=== PATIENT | male | born 1965 | race Caucasian/White ===

== ENCOUNTER 2017-04-17 14:37 | Emergency (ER) | payer MEDICAID ==
--- NOTE | 2017-04-17 15:25 | EDPHY ---
H & P Time Seen by Provider: 04/17/17 15:24 HPI/ROS: Chief complaint. Fall HPI. 52-year-old male was having his oil changed and apparently got out of the passenger side of the car and was walking around the car to go to the waiting room. Apparently he had a misstep and fell part way into that will change it. Did not strike his head. Does not have neck pain. He struck his right hand over his right thumb has an abrasion to his right price but complains of central chest discomfort. It is worse with taking a deep breath and worse with movement. He denies abdominal pain. ROS Constitutional. no fever/chills, no weakness Eyes. no problems with vision ENT. no sore throat, no nasal drainage Cardiovascular. Central chest pain Respiratory. no shortness of breath, no cough Abdominal. no abdominal pain, no nausea/vomiting, no diarrhea . no problems urinating MS. Right thumb abrasion Skin. Abrasion right price Lymph. no swollen glands Neuro. no headache, no dizziness, no difficulty walking or with speech Past Medical/Surgical History: Past medical history acute renal failure, atrial fibrillation, tips procedure, splenectomy, cirrhosis, alcoholism, pancreatitis, hypertension, GERD, gastric varices, bipolar Social History: Single, nonsmoker, no alcohol Smoking Status: Never smoked Physical Exam: General Appearance: Alert well-developed male mild distress vital signs are stable Eyes: Pupils equal and round no pallor or injection. ENT, Mouth: Mucous membranes are moist. Respiratory: There are no retractions, lungs are clear to auscultation. Cardiovascular: Regular rate and rhythm. Gastrointestinal: Abdomen is soft and nontender, no masses, bowel sounds normal. Neurological: Awake and alert, sensory and motor exams grossly normal. Skin: Abrasion right thumb and right price Musculoskeletal: Central chest discomfort without evidence of since surface trauma. No neck or back tenderness. Set Extremities symmetrical, full range of motion. Psychiatric: Patient is oriented X 3, there is no agitation. Constitutional: Initial Vital Signs Temperature (C) 36.8 C 04/17/17 14:42 Heart Rate 73 04/17/17 14:42 Respiratory Rate 16 04/17/17 14:42 Blood Pressure 153/91 H 04/17/17 14:42 O2 Sat (%) 97 04/17/17 14:42 O2 Delivery Mode Room Air Allergies/Adverse Reactions: Penicillins Allergy (Mild, Verified 04/17/17 14:41) Rash acetaminophen Adverse Reaction (Verified 04/17/17 14:41) ibuprofen Adverse Reaction (Verified 04/17/17 14:41) HORSE SERUM Allergy (Unknown, Uncoded 04/17/17 14:41) Home Medications: Medication Instructions Recorded Oxycodone HCl 5 - 10 mg PO Q6 PRN #0 tablet 09/08/12 Metoprolol Succinate Xr [Toprol Xl 50 mg PO DAILY 06/16/14 50 mg (*)] Ranitidine HCl [Zantac] 150 mg PO DAILY 06/16/14 traZODone [traZODONE 100MG (*)] 100 mg PO HS PRN 06/16/14 Citalopram [CeleXA 20 MG] 20 mg PO DAILY 05/24/16 Herbals/Supplements -Info Only 1 ea PO DAILY 05/24/16 Lisinopril [Zestril 10 mg (*)] 10 mg PO DAILY 05/24/16 Multivitamins [Multivitamin (*)] 1 tab PO DAILY 05/24/16 Pantoprazole Sodium [Protonix 40mg 40 mg PO DAILY 05/24/16 (*)] Clopidogrel Bisulfate [Plavix (*)] 75 mg PO DAILY 04/17/17 amLODIPine BESYLATE [Norvasc 5 mg 5 mg PO DAILY 04/17/17 (*)] oxyCODONE HCL [Oxycodone HCl] 5 mg PO Q4-6PRN PRN #6 tablet 04/17/17 Medical Decision Making - Diagnostics Imaging Results: Imaging Impressions Chest X-Ray 04/17/17 15:42 Impression: Chest negative for acute posttraumatic sequela. Chest x-ray interpreted by me is negative for fracture or pneumothorax ED Course/Re-evaluation: Re-evaluation 5:10 p.m.--patient is stable. Patient and I discussed imaging study results, treatment plan including criteria for return importance of follow-up further evaluation. The patient has been previously instructed not to use Tylenol or ibuprofen. He is on chronic oxycodone treatment at 25 tablets per month. I told him I would write him a prescription for 6 oxycodone tablets and then he needs to follow up with his pain management physician to have any further pain medication. He expresses understanding and agreement Differential Diagnosis: I considered fracture, dislocation, pneumothorax I think this is chest contusion Departure - Departure Disposition: Home, Routine, Self-Care Clinical Impression: Chest wall contusion Qualifiers: Encounter type: initial encounter Laterality: unspecified laterality Qualified Code(s): S20.219A - Contusion of unspecified front wall of thorax, initial encounter Condition: Good Instructions: Contusion in Adults (ED) Additional Instructions: Ice to sore area of chest next 24-48 hours. Continue regular medications. I oxycodone for discomfort. I will write your prescription for 6 pills in you need to follow up with your pain management physician for any further pain medication. Referrals: UNKNOWN,SALINAS [Other] - As per Instructions Prescriptions: oxyCODONE HCL [Oxycodone HCl] 5 mg PO Q4-6PRN PRN #6 tablet PRN Reason: Pain, Moderate
[2017-04-17 17:31] VITALS: BP 135/90; PULSE 64; RESP 18; TEMP 98.6; O2SAT 96
== END 2017-04-17 17:45 | disposition home or self-care (01) ==
DX: S20.219A Contusion of unspecified front wall of thorax, initial encounter (principal); I10 Essential (primary) hypertension; W18.39XA Other fall on same level, initial encounter